=== PATIENT | male | born 1950 | race Caucasian/White ===

== ENCOUNTER 2018-03-08 05:31 | Inpatient (IN) ==
[2018-03-08] MEDS ORDERED: Sodium Chlor 0.9% Inj 73.07 ML, Ropivacaine 0.5% PF Inj 24.63 ML, Ketorolac Inj 30 MG, ... P-ARTICULR ONE ×5 (05:59)
[2018-03-08] MEDS ORDERED: Dexamethasone Inj 20 MG/5 ML Vial IV.PUSH ONE (05:59)
[2018-03-08] MEDS ORDERED: Chlorhexidine 4% Topical 120 APPLIC/120 ML Bottle TOPICAL SCH (06:00)
[2018-03-08] MEDS ORDERED: TRANEXAMIC ACID IV.SIG SCH (06:00)
[2018-03-08] MEDS ORDERED: Vancomycin Inj 1,000 MG in Sodium Chlor 0.9% Inj 250 ML IV.SIG SCH (06:00)
[2018-03-08] MEDS ORDERED: SODIUM CHLOR 0.9% IV.SIG SCH (06:00)
[2018-03-08] MEDS ORDERED: ceFAZolin 2 GM Premix Inj 2 GM/50 ML PIGGYBACK IV.SIG SCH (06:00)
[2018-03-08] MEDS ORDERED: Metoprolol Tartrate 25 MG Tablet PO ONE (06:01)
[2018-03-08] MEDS ORDERED: Chlorhexidine Gluconate 2% 1 Pack (2 Cloths) TOPICAL ONE (06:01)
[2018-03-08] MEDS ORDERED: Bisacodyl 10 MG Supp RECTAL PRN (06:49)
[2018-03-08] MEDS ORDERED: Zolpidem Tartrate 5 MG Tablet PO PRN (06:49)
[2018-03-08] MEDS ORDERED: Post-op Orders (for Pharmacy) OTHER STA (06:49)
[2018-03-08] MEDS ORDERED: Sodium Chlor 0.9% Inj 500 ML IV.SIG SCH (07:00)
[2018-03-08] MEDS ORDERED: Tranexamic Acid Inj 3,000 MG in Sodium Chlor 0.9% Inj 100 ML P-ARTICULR ONE ×2 (07:00→11:00)
[2018-03-08 07:20] LABS: Hematocrit 47.7 % (39.0-51.0); Hemoglobin 15.8 gm/dL (13.0-17.0); Mean Corpuscular HGB Conc 33.1 % (32.0-36.0); Mean Corpuscular Volume 90.6 fL (80.0-100.0); Mean Platelet Volume 9.1 fL (7.0-11.0); Platelet Count 165 th/mm3 (150-450); Red Blood Count 5.26 mil/mm3 (4.50-5.90); Red Cell Distribution Width 15.2 % (11.6-17.2); White Blood Count 5.6 th/mm3 (4.0-11.0)
[2018-03-08] MEDS ORDERED: fentaNYL Citrate Inj 100 MCG/2 ML Ampul ONE ×2 (07:33→09:08)
[2018-03-08] MEDS ORDERED: Bupivacaine Liposomal PF 1.3% Inj 20 ML Vial ONE (07:39)
[2018-03-08] MEDS ORDERED: fentaNYL Citrate Inj 250 MCG/5 ML Ampul ONE (09:08)
[2018-03-08] MEDS ORDERED: Famotidine PF Inj 20 MG/2 ML Vial ONE (09:08)
[2018-03-08] MEDS ORDERED: Ketamine Inj 50 MG/5 ML Syringe IV.PUSH ONE (09:23)
[2018-03-08] MEDS ORDERED: Thrombin Topical Soln 5,000 UNIT Vial TOPICAL ONE (10:38)
[2018-03-08] MEDS ORDERED: *Meperidine Inj 25 MG/ML Vial PERIprocedural Use ONLY ONE (11:26)
[2018-03-08] MEDS ORDERED: *morphine SULFATE 10 MG/ML PERIprocedure ONLY ONE (11:36)
--- NOTE | 2018-03-08 12:10 | XR ---
EXAM DATE: 03/08/2018 12:04 PM EST AGE/SEX: 67 years / Male INDICATIONS: Post op right knee surgery. CLINICAL DATA: This is the patient's initial encounter. Patient reports that signs and symptoms have been present for 1 day and indicates a pain score of 8/10. MEDICAL/SURGICAL HISTORY: None. None. COMPARISON: No prior exams available for comparison. FINDINGS: Postsurgical changes following knee replacement are noted. Prosthetic components are well seated and satisfactorily aligned. CONCLUSION: Satisfactory postoperative appearance of the right knee following replacement. Electronically signed by: Mark Avila MD 03/08/2018 12:09 PM EST
--- NOTE | 2018-03-08 13:18 | MP ---
cc: Jean Claude Colón MD DATE OF OPERATION: 03/08/2018 PREOPERATIVE DIAGNOSIS: Right knee osteoarthritis. POSTOPERATIVE DIAGNOSIS: Right knee osteoarthritis. PROCEDURE PERFORMED: Right total knee arthroplasty. SURGEON: Dr. Jean Claude Colón. BIOSOLIDS MANAGEMENT TECHNICIAN: CHRISTOPHE Nascimento. ANESTHESIA: General with adductor canal block. ESTIMATED BLOOD LOSS: 100 mL. TOURNIQUET TIME: 22 minutes at 200 mmHg. COMPLICATIONS: None. IMPLANTS USED: DePuy Attune size 8 posterior stabilized femoral component, size 8 rotating platform tibial baseplate, size 6 mm polyethylene tibial insert, size 41 patella. INDICATIONS: The patient is a 67-year-old male with history of severe osteoarthritis on the right knee joint. He has severe sitting, standing, walking, ambulation with weightbearing activities and severe pain at rest. He has failed greater than 3 months of nonoperative conservative treatment to include medication therapy, injections, ambulatory assistance aids, home exercise program, activity modification and weight loss. X-rays of the right knee revealed severe osteoarthritis, [id number] joint space narrowing, subchondral sclerosis, subchondral cyst, osteophyte formation with subluxation. The patient was counseled to the risks, benefits and alternatives to total knee arthroplasty. The risks were discussed, which included, but limited to anesthesia, bleeding, infection, damage to the nerves, blood vessels, , blood clots, pulmonary embolism, and even . The patient benefit from the risks and wish to proceed with surgery. PROCEDURE IN DETAIL: Written consent was obtained. The patient was identified by name, taken to the operating room and placed supine. After general anesthesia was administered to the patient, as well as 2 gm IV Ancef and 1 gram IV vancomycin. A well-padded tourniquet was placed on the right thigh and the right lower extremity prepped and draped using , Hibiclens solution and ChloraPrep solution. After a timeout was performed, Esmarch bandage was used to exsanguinate the right lower extremity and tourniquet inflated to 250 mmHg longitudinally over the anterior aspect of the right knee. A medial parapatellar arthrotomy was performed. The patella was everted. Patellar resection guide was used to resect 9 mm of the patella with a size 41 mm guide was placed, 3 drills were placed and 41 mm trial fit well. Attention turned to the femur an intramedullary guide was placed and the distal femoral guide was set to remove 11 mm of distal femur and 5 degrees off the anatomic axis laminotomy saw was used to perform distal femoral cut. Attention was turned to the tibia where an extramedullary tibial guide was set to remove 6 mm ____ from the medial tibial plateau. The tibial guide was pinned in place and tibia cut was performed. A 5 mm . Attention was turned back to the femur. AP sizing block measured a size 8. The anterior reference 3-degree external rotation guide was used to pin a size [address] Anterior, posterior and chamfer cuts were performed. A size 8 PCL box medial and lateral meniscus remnants were removed, as well as bone and soft tissue debris from the posterior portion of the knee. A size 8 tibia baseplate was in place and tibia was drilled and were and was cemented in place with the current components to achieve full extension to 0 degrees and flexion to 140. No evidence tibia lift off, varus and valgus balance to be appropriate and symmetric and the patella was noted to track centrally. Tourniquet deflated. Bovie cautery was used for hemostasis. The wound was thoroughly irrigated with sterile saline plus antibiotic-impregnated solution. The arthrotomy incision was closed with #1 Vicryl suture, subcutaneous layer with 2-0 Vicryl suture. Skin was closed with Dermabond. Sterile dressing applied. The patient tolerated the procedure well with no intraoperative complications noted. , physician visitor services information assistant certified, ____ the entire procedure to assist with patient positioning and . The physician visitor services information assistant was indicated due to the complexity of the procedure. He assisted with appropriate manipulation of the leg, , bone and neurovascular structures. He assisted preparation and also implantation of the prosthetic replacement. MD LIZA Nails/ana maria , 11:00 AM , 11:07 AM
[2018-03-08] MEDS: HYDROmorphone PF Inj 1 MG/ML Ampul IV.PUSH PRN ×2 (14:22→18:22)
[2018-03-08] MEDS: Gabapentin 300 MG Capsule PO SCH ×2 (15:46→17:56)
[2018-03-08] MEDS: Senna/Docusate Sodium 8.6/50 MG Tablet PO SCH ×2 (15:46→21:17)
[2018-03-08] MEDS: ceFAZolin 2 GM Premix Inj 2 GM/50 ML PIGGYBACK IV.SIG SCH ×2 (16:12→21:19)
[2018-03-08] MEDS: Multivitamin/Minerals Therapeutic Tablet PO SCH (21:17)
[2018-03-09] MEDS: ceFAZolin 2 GM Premix Inj 2 GM/50 ML PIGGYBACK IV.SIG SCH (04:14)
[2018-03-09 06:50] LABS: Hematocrit 39.4 % (39.0-51.0); Hemoglobin 12.8 gm/dL (13.0-17.0)
[2018-03-09] MEDS: Gabapentin 300 MG Capsule PO SCH (08:19)
[2018-03-09] MEDS: Senna/Docusate Sodium 8.6/50 MG Tablet PO SCH (08:19)
[2018-03-09] MEDS: Multivitamin/Minerals Therapeutic Tablet PO SCH (08:19)
--- NOTE | 2018-03-09 08:36 | P.PNOP ---
Subjective Interval history: doing well. pain controlled. Physical Exam Vital signs: Vital Signs 03/08/18 11:19 03/08/18 11:30 03/08/18 11:45 Temperature 98 F Pulse Rate 79 68 69 Respiratory Rate 17 17 17 Blood Pressure 129/70 137/68 135/69 Pulse Oximetry 96 95 95 03/08/18 12:00 03/08/18 12:15 03/08/18 12:50 Temperature 98 F 98.1 F Pulse Rate 64 62 69 Respiratory Rate 17 17 19 Blood Pressure 140/68 124/63 139/77 Pulse Oximetry 95 95 94 L 03/08/18 15:40 03/08/18 20:00 03/09/18 00:00 Temperature 98.4 F 97.6 F 97.7 F Pulse Rate 65 59 L 70 Respiratory Rate 19 17 16 Blood Pressure 124/75 118/66 112/60 Pulse Oximetry 95 96 95 03/09/18 04:00 Temperature 98.0 F Pulse Rate 70 Respiratory Rate 16 Blood Pressure 115/72 Pulse Oximetry 96 Intake & Output 03/08/18 03/09/18 03/09/18 18:59 06:59 18:59 Intake Total 2196.875 / 2196.875 1100 / 1100 Output Total 550 / 550 450 / 450 Balance 1646.875 / 1646.875 650 / 650 Weight 112.5 kg Intake: IV 1596.875 / 6342.092 6815 / 1100 LR 1000 mL Inj 1,000 ML @ 80 1000 / 1000 mls/hr IV.CONT .[id number] [facility] Rx# :[id number] LR 1000 mL Inj 1,000 ML @ 30 1000 / 1000 mls/hr IV.SIG .Q24H [facility] Rx#: [id number] Cyklokapron Inj 1,687.5 MG In 116.875 / 116.875 NS Inj 100 ML @ 200 mls/hr IV. SIG ONCE [facility] Rx#:[id number] Vancomycin Inj 1,000 MG In NS 250 / 250 Inj 250 ML @ 250 mls/hr IV.SIG CRATE TIER [facility] Rx#:[id number] Ancef 2 GM Premix Inj 2 gm In 100 / 100 100 / 100 50 ml @ 100 mls/hr IV.SIG Q6H [facility] Rx#:[id number] Anesthesia Amount 600 / 600 Output: Urine 450 / 450 450 / 450 Estimated Blood Loss 100 / 100 Other: Weight On Admission 112.5 kg Narrative: in bed, nad dressing c/d/i neg fer nvi Results - Labs CBC & Chem 7: 03/09/18 05:47 Laboratory Results - last 24 hr 03/09/18 05:47 Hgb 12.8 L D Hct 39.4 - Imaging Impressions Knee X-Ray 03/08/18 06:47 CONCLUSION: Satisfactory postoperative appearance of the right knee following replacement. Assessment and Plan - Ortho Post Op Day # 1 - Assessment and Plan s/p R TKA wbat ok to maintain dressing unless saturated asa 81 d/c planning home with [facility] and pt - cleared today f/up dr. wagner 2 weeks
--- NOTE | 2018-03-09 08:39 | P.DCO ---
- Physical Therapy Physical Therapy: Gait training, Safety evaluation, Transfer training, bed to chair Knee: Total knee, Protocol: Right, Full weight bearing Right Lower Extremity Weight Bearing: Weight bearing as tolerated - Nursing Nursing: Dressing changes Dressing changes: Do not change dressing, Daily dressing change - Certification Need for Home Health services: I have seen patient French Vieyra on 03/09/18. My clinical findings support the need for the requested home health care services because: Need for Home Health Services: Limited ability to care for self, High risk of falls Homebound Certification: I certify that my clinical findings support that this patient is homebound because: Homebound Certification: Post-op weakness, Unsteady gait/balance
== END 2018-03-09 10:19 | disposition home health service (06) ==
LOC: HSDC 05:31 → HSDI 06:47 → EDSTATUS 08:30 → N06 12:34
PROVIDERS: ADMIT Orthopaedic Surgery Sports Medicine; ATTEND Orthopaedic Surgery Sports Medicine